=== PATIENT | male | born 1935 | race Caucasian/White ===

== ENCOUNTER → 2020-05-30 | Outpatient (CLI) | payer BC ==
[~2020-05-30] MED LIST: CONTRAST GIVEN. MC PRN; IOHEXOL 240 MG/ML 50ML VIAL. PO ONE; IOHEXOL 300 MG/ML 100ML VIAL. IV ONE
--- NOTE | 2020-05-30 12:36 | RAD ---
EXAM: Abdomen and pelvis CT with intravenous contrast. HISTORY: Pain. TECHNIQUE: Computed tomographic images of the abdomen and pelvis were obtained following the administ ration of intravenous contrast. Multiplanar reformatting was performed. *One or more of the following individualized dose reduction techniques were utilized for this examina tion: 1. Automated exposure control. 2. Adjustment of the mA and/or kV according to patient size. 3. Use of iterative reconstruction technique. COMPARISON: None. FINDINGS: Evaluation of the lower thorax demonstrates scattered tiny groundglass nodular opacities wi thin the bilateral lower lobes. There is posterior dependent and basilar atelectasis and pleural pare nchymal scarring. There is a tiny hiatal hernia. There is calcified pleural plaque at the right lung base. There is a 5 mm hypodense lesion within the hepatic dome, likely cystic based on attenuation. T here is cholelithiasis. The pancreas, spleen and adrenal glands are unremarkable. There is a small simple appearing cyst within the upper pole the right kidney. There is a prominent r enal collecting system likely due to the hydration status of patient. There is no hydronephrosis. The re is slight deformation of the bladder base due to mild enlargement of the prostate. 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 There is no appendicitis. The cecum is positioned within the midabdomen, a normal variant. There is n o evidence of bowel obstruction. There is calcified atherosclerotic plaque involving the aorta and il iac bifurcation. There is no lymphadenopathy. There is no suspicious osseous lesion. IMPRESSION: 1. Small hiatal hernia. 2. Small right renal cyst and pelvic cyst. Follow-up is not routinely performed for simple cysts. 3. Moderate colonic stool. 4. Mild prostatomegaly with deformation of the bladder base. 5. Cholelithiasis. 6. Tiny nodular groundglass opacities within the bilateral lower lungs. This may be due to atypical p neumonia or pneumonitis. Electronically signed by: Kecia So MD (05/30/2020 12:34 PM) [id number]
== END ==
LOC: CT 11:30
PROVIDERS: ATTEND Family Medicine
DX: K44.9 Diaphragmatic hernia without obstruction or gangrene (principal); K80.20 Calculus of gallbladder without cholecystitis without obstruction; N40.0 Benign prostatic hyperplasia without lower urinary tract symptoms
CPT/HCPCS: 74177; Q9966; Q9967